=== PATIENT | female | born 1965 | race Caucasian/White ===

== ENCOUNTER 2021-08-07 11:03 | Outpatient (CLI) | payer BC, SELFPAY ==
--- NOTE | ~2021-08-07 | XR_ITS ---
EXAMINATION: XR chest 2V EXAM DATE: 08/07/2021 11:19 INDICATION: R06.02 - Shortness of breath . TECHNIQUE: Frontal and lateral projections of the chest obtained and reviewed. There is no prior anu dy for comparison. FINDINGS: The lungs are clear. There are no pleural effusions. The cardiomediastinal silhouette is within normal limits. There is no pneumothorax suspected. Mild thoracic scoliosis. IMPRESSION: No acute cardiopulmonary findings. Reviewed, dictated and finalized at location A.
== END 2021-08-07 11:04 | disposition home or self-care (01) ==
PROVIDERS: PCP Family Medicine; Visit Provider Nurse Practitioner Family
DX: R06.02 Shortness of breath (principal)
CPT/HCPCS: 71046

== ENCOUNTER 2022-07-26 08:12 | Outpatient (CLI) | payer BC, SELFPAY ==
--- NOTE | ~2022-07-26 | US_ITS ---
US abdomen limited INDICATION: Elevated liver enzymes. PROCEDURE: Realtime right upper abdominal ultrasound. COMPARISON: No prior studies for comparison. FINDINGS: The pancreas is normal without focal mass or pancreatic ductal dilation. Increased liver e chotexture, consistent with fatty infiltration. There is focal hypoechoic areas near the gallbladder fossa, likely focal fatty sparing. There is normal directional flow in the portal vein. The gallbladder is normal without stones, gallbladder wall thickening or pericholecystic fluid. Comm on bile duct measures 5 mm. No sonographic Qureshi's sign. IMPRESSION: 1: Hepatic steatosis. Reviewed, dictated and finalized at location B. IMPRESSION: 1: Hepatic steatosis.
== END 2022-07-26 08:13 | disposition home or self-care (01) ==
PROVIDERS: PCP Family Medicine; Visit Provider Nurse Practitioner Family
DX: R74.8 Abnormal levels of other serum enzymes (principal); K76.0 Fatty (change of) liver, not elsewhere classified
CPT/HCPCS: 76705

== ENCOUNTER → 2023-06-27 13:54 | Outpatient (CLI) | payer BC, SELFPAY ==
--- NOTE | ~2023-06-27 | MM_ITS ---
EXAMINATION: MM screening ney BI w meghann HISTORY: Screening mammogram TECHNIQUE: Craniocaudal and mediolateral oblique 3-D tomosynthesis images were obtained and synthetic 2-D images were generated. CAD analysis was submitted and interpreted. COMPARISON: No prior mammogram is available for comparison at this institution. BREAST PARENCHYMAL COMPOSITION: The breasts are almost entirely fatty. FINDINGS: There is no evidence of suspicious mass, calcification, or architectural distortion to sugg est malignancy in either breast. There has been no suspicious interval change. IMPRESSION: 1. No mammographic evidence of malignancy. 2. Recommend routine screening mammography in one year. BI-RADS Category 1: Negative Reviewed, dictated and finalized at location A.
== END ==
PROVIDERS: PCP Registered Nurse; Visit Provider Registered Nurse
DX: Z12.31 Encounter for screening mammogram for malignant neoplasm of breast (principal)
CPT/HCPCS: 77063; 77067

== ENCOUNTER 2023-09-29 00:34 | Day surgery (SDC) | payer BC, SELFPAY ==
[2023-09-19 14:04] VITALS: BMI 31.2
--- NOTE | 2023-09-27 11:56 | SUR.PREOP ---
Patient called regarding upcoming procedure. Reviewed preop instructions, appointment times, and procedure prep.
--- NOTE | 2023-09-28 18:04 | PM.HPGS ---
History of Present Illness History of Present Illness Consent: Risks, benefits, and alternatives have been discussed and questions answered. Patient agrees to proceed with procedure. Chief complaint: dysphagia Narrative: Landy Aquino is a 58 year old female who has been choking on mucus for the last couple of months. She woke up several weeks ago gasping for air. She felt as though she had aspirin she sometimes feels that food does not go down but not to the point that she needs to stop eating. More often she feels that saliva is accumulating in her throat. One recent occasion at night she vomited up large amounts of saliva. Review of Systems Review of Systems: All systems reviewed & are unremarkable except as noted in HPI and below PMFSH Past Medical History Medical History Chronic insomnia GERD (gastroesophageal reflux disease) History of multiple miscarriages History of vaginal delivery HLD (hyperlipidemia) HTN (hypertension) Surgical History Surgical History History of ankle surgery bilateral History of colonoscopy History of dilation and curettage History of tubal ligation [place] teeth removed Family History Family History Father Hypertension Mother Heart disease Sibling Multiple myeloma Social History Social History Smoking status: Never smoker Second hand tobacco smoke exposure: No Alcohol intake: current Drinks per week: 1 Substance use: never Substance use type: does not use Lack of Transportation: No Lack of Food: Never True Current Housing: I Have Housing Concerned About Future Housing: No Difficulty Paying Gas/Electric Bills: No Difficulty Paying for Meds: No Currently Unemployed: No Education: High School Diploma/GED Difficulty w/ Childcare or Family Care: No Living arrangements: with family Occupation/Education: occupation Gender identity (if verbalized by the patient): Female Sexual Orientation (if Verbalized by the Patient): Straight or Heterosexual Spiritual care concerns: No Meds Home Medications and Allergies Home Medications Medication Instructions Recorded Confirmed Type cetirizine 10 mg tablet (Zyrtec) 10 mg PO DAILY PRN Allergy Symptoms 01/12/21 09/29/23 History omeprazole 40 mg capsule,delayed 40 mg PO DAILY #90 caps 01/12/21 09/29/23 Rx release vitamin B complex (Super B-50 1 cap PO DAILY 01/12/21 09/29/23 History Complex capsule) biotin 1 mg capsule 1 mg PO DAILY 02/07/23 09/29/23 History cholecalciferol (vitamin D3) 25 25 mcg PO DAILY 02/07/23 09/29/23 History mcg (1,000 unit) capsule duloxetine 30 mg capsule,delayed 30 mg PO DAILY #90 caps 05/30/23 09/29/23 Rx release propranolol 20 mg tablet 20 mg PO Q12H #180 tabs 07/22/23 09/29/23 Rx trazodone 100 mg tablet 100 mg PO QHS PRN sleep #90 tabs 07/22/23 09/29/23 Rx triamcinolone acetonide 0.5 % 1 applic topical DAILY PRN rash 08/08/23 09/29/23 Rx topical cream #15 grams simvastatin 5 mg tablet 5 mg PO DAILY #90 tabs 08/23/23 09/29/23 Rx albuterol sulfate 90 mcg/actuation 1 - 2 puff inhalation Q4H PRN 09/13/23 09/29/23 Rx aerosol inhaler (ProAir HFA) shortness of breath or wheezing #8.5 grams Allergies Allergy/AdvReac Type Severity Reaction Status Date / Time amoxicillin Allergy Mild Rash Verified 09/29/23 06:49 ciprofloxacin Allergy Mild Rash Verified 09/29/23 06:49 milk Allergy Other Verified 09/29/23 06:49 Exam Const: General: alert Orientation/consciousness: patient oriented x3 Resp: Auscultation: clear to auscultation bilaterally Cardio: Rhythm: regular rhythm GI: GI Palp: Yes Soft to palpation and No Tenderness to palpation present (GI) Neuro: General: patient oriented x3 Assessment and Plan Assessment and p
[2023-09-29 06:50] VITALS: BP 149/71; PULSE 59; RESP 18; TEMP 36.3; O2SAT 99; BMI 30.6
[2023-09-29] MEDS: LACTATED RINGERS 1,000 ML 150 ML IV CONT (07:03)
--- NOTE | 2023-09-29 07:40 | WPDANESEPPF ---
Anes - Initial Pre Proc Eval Procedure: Operation Date: 09/29/23 08:00 Proposed Procedures p Esophagogastroduodenoscopy - Fadi Toribio MD Date/Time: 09/29/23 07:40 Surgeon: Fadi Toribio MD Pre Op Diagnosis: dysphagia Patient Data Age: 58 Gender: F Height: 1.6 m Weight: 78.4 kg Last Vital Signs Temp 97.3 F L 09/29/23 06:50 Pulse 59 L 09/29/23 06:50 Resp 18 09/29/23 06:50 BP 149/71 H 09/29/23 06:50 Pulse Ox 99 09/29/23 06:50 O2 Del Method Room Air 09/29/23 06:50 Allergies Allergy/AdvReac Type Severity Reaction Status Date / Time amoxicillin Allergy Mild Rash Verified 09/29/23 06:49 ciprofloxacin Allergy Mild Rash Verified 09/29/23 06:49 milk Allergy Other Verified 09/29/23 06:49 Home Medications Medication Instructions Recorded Confirmed Type cetirizine 10 mg tablet (Zyrtec) 10 mg PO DAILY PRN Allergy Symptoms 01/12/21 09/29/23 History omeprazole 40 mg capsule,delayed 40 mg PO DAILY #90 caps 01/12/21 09/29/23 Rx release vitamin B complex (Super B-50 1 cap PO DAILY 01/12/21 09/29/23 History Complex capsule) biotin 1 mg capsule 1 mg PO DAILY 02/07/23 09/29/23 History cholecalciferol (vitamin D3) 25 25 mcg PO DAILY 02/07/23 09/29/23 History mcg (1,000 unit) capsule duloxetine 30 mg capsule,delayed 30 mg PO DAILY #90 caps 05/30/23 09/29/23 Rx release propranolol 20 mg tablet 20 mg PO Q12H #180 tabs 07/22/23 09/29/23 Rx trazodone 100 mg tablet 100 mg PO QHS PRN sleep #90 tabs 07/22/23 09/29/23 Rx triamcinolone acetonide 0.5 % 1 applic topical DAILY PRN rash 08/08/23 09/29/23 Rx topical cream #15 grams simvastatin 5 mg tablet 5 mg PO DAILY #90 tabs 08/23/23 09/29/23 Rx albuterol sulfate 90 mcg/actuation 1 - 2 puff inhalation Q4H PRN 09/13/23 09/29/23 Rx aerosol inhaler (ProAir HFA) shortness of breath or wheezing #8.5 grams Patient hx anesthesia problems: none Family hx anesthesia problems: none Results Review: All pre-operative results and documents have been reviewed as part of the pre-operative evaluation. PENDING SALE TO [facility] Past Medical History Medical History Chronic insomnia GERD (gastroesophageal reflux disease) History of multiple miscarriages History of vaginal delivery HLD (hyperlipidemia) HTN (hypertension) Surgical History Surgical History History of ankle surgery bilateral History of colonoscopy History of dilation and curettage History of tubal ligation [place] teeth removed Family History Family History Father Hypertension Mother Heart disease Sibling Multiple myeloma Social History Social History Smoking status: Never smoker Second hand tobacco smoke exposure: No Alcohol intake: current Drinks per week: 1 Substance use: never Substance use type: does not use Lack of Transportation: No Lack of Food: Never True Current Housing: I Have Housing Concerned About Future Housing: No Difficulty Paying Gas/Electric Bills: No Difficulty Paying for Meds: No Currently Unemployed: No Education: High School Diploma/GED Difficulty w/ Childcare or Family Care: No Living arrangements: with family Occupation/Education: occupation Gender identity (if verbalized by the patient): Female Sexual Orientation (if Verbalized by the Patient): Straight or Heterosexual Spiritual care concerns: No Anes - Eval Final PreProcedure Day of Procedure 09/29/23 07:40 Patient weight: normal Heart: regular rate and rhythm Lungs: clear to auscultation Airway: Mallampati scale class II Neurological: alert and oriented Last oral intake: >/= 8 hours ASA classification: III Emergent: no Anesthetic plan: proceed Anesthesia type and monitoring: general GIVS and standard monitoring Results Review: All pre-o
[2023-09-29 08:12] VITALS: BP 111/64; PULSE 56; RESP 22; O2SAT 96
[2023-09-29 08:22] VITALS: BP 122/69; PULSE 62; RESP 20; O2SAT 95
[2023-09-29 08:32] VITALS: BP 134/77; PULSE 58; RESP 16; O2SAT 96
== END 2023-09-29 08:36 | disposition home or self-care (01) ==
PROVIDERS: PCP Family Medicine; Visit Provider Internal Medicine Gastroenterology
PROC: 0DJ08ZZ Inspection of Upper Intestinal Tract, Via Natural or Artificial Opening Endoscopic (ICD-10-PCS; CPT 43235; principal; 2023-09-29 08:00)
DX: K21.00 Gastro-esophageal reflux disease with esophagitis, without bleeding (principal); K31.7 Polyp of stomach and duodenum; I10 Essential (primary) hypertension; E78.5 Hyperlipidemia, unspecified; K21.9 Gastro-esophageal reflux disease without esophagitis; F51.04 Psychophysiologic insomnia; Z79.51 Long term (current) use of inhaled steroids; Z82.49 Family history of ischemic heart disease and other diseases of the circulatory system
CPT/HCPCS: 43251; 43239; 88305; J2704; J7120

== ENCOUNTER 2023-10-26 13:10 | Outpatient (CLI) | payer BC, SELFPAY | END 2023-10-26 13:11 | disposition home or self-care (01) | LOC: ANHBWCAUD 13:11 | PROVIDERS: PCP Family Medicine; Visit Provider Otolaryngology | DX: H65.499 Other chronic nonsuppurative otitis media, unspecified ear (principal); H69.90 Unspecified Eustachian tube disorder, unspecified ear; H67.2 Otitis media in diseases classified elsewhere, left ear; H72.92 Unspecified perforation of tympanic membrane, left ear; H90.12 Conductive hearing loss, unilateral, left ear, with unrestricted hearing on the contralateral side; H90.71 Mixed conductive and sensorineural hearing loss, unilateral, right ear, with unrestricted hearing on the contralateral side | CPT/HCPCS: 92557; 92567 ==

== ENCOUNTER 2023-11-18 09:13 | Outpatient (CLI) | payer BC, SELFPAY ==
--- NOTE | ~2023-11-18 | US_ITS ---
Limited Abdominal Sonogram: Real-time sonographic imaging of the right upper quadrant was performed. Clinical History: Right upper quadrant pain Findings: The liver appears echogenic, with no evidence of mass lesion or bile duct dilatation. Main portal vein demonstrates normal direction of flow. The gallbladder is well distended, and appears no rmal with no evidence of gallstone or wall thickening. The common bile duct measures 1-2 mm. The vis ualized pancreas, aorta, and IVC are unremarkable. Impression: Diffuse fatty infiltration of liver. Reviewed, dictated and finalized at location M. [facility] Impression: Diffuse fatty infiltration of liver.
== END 2023-11-18 09:14 | disposition home or self-care (01) ==
PROVIDERS: PCP Family Medicine; Visit Provider Physician Assistant
DX: R10.11 Right upper quadrant pain (principal); K76.0 Fatty (change of) liver, not elsewhere classified
CPT/HCPCS: 76705

== ENCOUNTER 2023-12-06 09:28 | Outpatient (CLI) | payer BC, SELFPAY ==
--- NOTE | ~2023-12-06 | NM_ITS ---
EXAMINATION: NM hepatobiliary wo pharm DATE: 12/06/2023 12:05 INDICATION: Right upper quadrant abdominal pain. COMPARISON: Ultrasound 11/18/2023 TECHNIQUE: 5.01 mCi Tc-99m mebrofenin (Choletec) was administered intravenously. Scintigraphic image s of the abdomen were obtained for one hour. Then, the patient drank 8 oz Ensure, and imaging was con tinued for 60 minutes. FINDINGS: There is normal clearance of radiotracer from the blood pool. There is homogeneous tracer u ptake by the liver. Activity progresses to the bowel and gallbladder. Gallbladder ejection fraction (GBEF) was 21%. Note that with this technique, normal GBEF >= 33%. IMPRESSION: 1. Low gallbladder ejection fraction, consistent with gallbladder dysfunction and/or chronic cholecy stitis. Reviewed, dictated and finalized at location E. HAMMER STRIPPER IMPRESSION: 1. Low gallbladder ejection fraction, consistent with gallbladder dysfunction and/or chronic cholecystitis.
== END 2023-12-06 09:29 | disposition home or self-care (01) ==
LOC: ANHIMG 09:31
PROVIDERS: PCP Family Medicine; Visit Provider Physician Assistant
DX: R10.11 Right upper quadrant pain (principal)
CPT/HCPCS: 78226; A9537

== ENCOUNTER 2023-12-21 11:17 | Outpatient (CLI) | payer BC, SELFPAY ==
--- NOTE | ~2023-12-21 | XR_ITS ---
Clinical Indication: Cough PA and lateral views of the chest: Comparison: 08/07/2021 Findings: The lungs are clear, without evidence of focal consolidation or pleural effusion. Cardiome diastinal silhouette is within normal limits. Bones and soft tissues are unremarkable. Impression: Normal chest. Reviewed, dictated and finalized at location . Impression: Normal chest.
== END 2023-12-21 11:18 | disposition home or self-care (01) ==
LOC: ANHIMG 11:19
PROVIDERS: PCP Family Medicine; Visit Provider Nurse Practitioner Family
DX: R05.9 Cough, unspecified (principal)
CPT/HCPCS: 71046

== ENCOUNTER 2023-12-29 08:31 | Outpatient (CLI) | payer BC, SELFPAY ==
--- NOTE | 2023-12-31 21:38 | P.PCNPFT_ITS ---
PFT Procedure Performed PFT Procedure Performed Spirometry with Pre/Post Bronchodilator Plethysmography (Lung Vol) Diffusing Cap (DLCO) Flow Vol Loop PFT Interpretation DOS: 12/29/2023 REQUESTING: Tarun Maldonado APRN REASON FOR TESTING: Asthma PULMONARY FUNCTION TESTS As of December 30, 2022, the Global Lung Initiative reference equations are used in interpretation of spirometry, lung volumes and diffusing capacity. Race and ethnicity are not included as variables in the interpretation strategy. Repeatability of spirometry FEV1 maneuver pre bronchodilator is Grade B, and post-bronchodilator is Grade A. Spirometry: The pre-bronchodilator FEV1 is 2.32 L, 98%, normal. The pre- bronchodilator FVC is 2.89 L, 97%, normal. The FEV1/FVC ratio is 80%, normal. After bronchodilator, the FEV1 is 2.25 L, 95%, normal, 3% drop. The FVC is 2.80 L, 94%, normal, 3% drop. The FEV1/FVC ratio is 80%, normal. Lung volumes: The total lung capacity is 4.07 L, 86% predicted, normal. The ERV is 0.58 L, 62%, BP low normal. The residual volume is 1.19 L, 65%, low end of normal. The RV/TLC is 29%, normal. Airway resistance is normal. Diffusion: DLCO is 17.3, 82%, normal. The DLCO/VA is 4.83, 106%, normal. Flow volume loop: The flow volume loop is normal. IMPRESSION: This study shows normal spirometry, normal lung volumes and normal diffusion without response to bronchodilator. Lack of response to bronchodilator should not preclude use if clinically indicated. Lili Molina MD
== END 2023-12-29 08:32 | disposition home or self-care (01) ==
LOC: ANHPFT 08:32
PROVIDERS: PCP Family Medicine; Visit Provider Nurse Practitioner Family
DX: J45.909 Unspecified asthma, uncomplicated (principal)
CPT/HCPCS: 94060; 94726; 94729

== ENCOUNTER 2024-01-18 09:22 | Outpatient (CLI) | payer BC, SELFPAY ==
--- NOTE | 2024-01-18 09:34 | ECG_ITS ---
SEE SCANNED COPY FOR CONFIRMED REPORT MTDD
[2024-01-18 10:11] LABS: Alanine Aminotransferase 49 U/L (6-35); Albumin Level 4.7 g/dL (3.5-5.1); Alkaline Phosphatase 102 U/L (38-126); Amylase 97 U/L (30-110); Aspartate Amino Transferase 37 U/L (14-36); Bilirubin,Total 0.5 mg/dL (0.2-1.3); Lipase 96 U/L (23-300)
== END 2024-01-18 09:23 | disposition home or self-care (01) ==
LOC: ANHSURGERY 09:25
PROVIDERS: PCP Family Medicine; Visit Provider Surgery
DX: K81.1 Chronic cholecystitis (principal); I10 Essential (primary) hypertension; Z01.818 Encounter for other preprocedural examination
CPT/HCPCS: 36415; 80076; 82150; 83690; 93005

== ENCOUNTER 2024-01-26 00:58 | Day surgery (SDC) | payer BC, SELFPAY ==
[2024-01-17 15:29] VITALS: BMI 31.5
--- NOTE | 2024-01-17 15:35 | PC.NURSE ---
Report to the Outpatient Waiting Room, entrance under the green pavilion located off [facility], at time 1:00 on date 01/26/24. Planned Procedure Time: 3:00. Time changes happen often and if your time is changed the preop area will call you the afternoon before. - You and your visitor will be asked to self-screen and do not enter if you have any COVID symptoms. - A mask is optional within the hospital at this time. Patients may have clear liquids (water, carbonated beverages, clear teas, apple juice) until 3 hours prior to surgery (12:00) with a maximum of 20 ounces. - No food from midnight until time of surgery Take the following medications with a SIP of water the morning of surgery: INHALER, DULOXETINE, PROPRANOLOL DO NOT STOP ANY OF YOUR OTHER PRESCRIPTION MEDICATIONS PRIOR TO SURGERY ?EXCEPT THE FOLLOWING Medications to discontinue per physician: VITAMINS/SUPPLEMENTS Date to take last dose: 01/22/24 Please no make-up, nail uruguayan, hairspray, perfume, deodorant, or body powder the day of surgery. No jewelry (including any body piercings) or valuables the day of surgery, leave them at home. Please take a shower or bath the night before, or the morning of, surgery with an antibacterial soap. Wear comfortable, loose fitting clothing. - Jewelry must be removed prior to entering the operating room. Rings and piercings that are not removed may be cut off. - The hospital will not accept responsibility for valuables. - Please leave all valuables, including medications, at home the day of surgery. If you are going home after surgery, a licensed ice delivery driver must drive you home. - NO public transportation without another adult if you receive anesthesia. - We recommend that an adult stay with you for 24 hours following discharge. - We also recommend that you do not drive, make important decision, drink alcoholic beverages, or take any drugs that were not prescribed by your health care provider for at least 24 hours after your discharge time. Follow any additional instructions given to you from your surgeon. If you or anyone in your household have experienced Covid symptoms in the past week, please notify your surgeon or the nurse liaison at the phone number below for possible testing. Telephone instructions given to PT - AR and asked if any additional questions and then verbalized understanding. Patient advised to call surgeon office or pre surgery nurse liaison [phone] if any additional questions.
--- NOTE | 2024-01-23 15:01 | PM.SD2 ---
Same Day Admit/Disch: HPI History of Present Illness Chief complaint: Epigastric pain Narrative: Landy Aquino is a 58 year old female who has had epigastric and right upper quadrant postprandial pain for 5-6 years. In the last 12 months, pains have been getting more frequent and more intense. It is not uncommon for this to awaken her at night. Her mother had gallbladder disease and had cholecystectomy. Patient did have an ultrasound which was negative. She had an hepatobiliary scan which showed a low gallbladder ejection fraction of 21%. She is taken to surgery at this time for laparoscopic cholecystectomy for chronic acalculous cholecystitis. It should also be noted that patient has another chronic problem in that she has a chronic cough and excessive mucus production. She has LOIDA but is not able to tolerate a CPAP mask as sometimes her mucous chokes her and gives a feeling of inability to breathe.. Taking the mask off in those instances is very difficult and frightening. She has been seen by Dr. Santiago, ears nose throat, and was told that the mucus is coming from her esophagus not from her sinuses. She carries a diagnosis of laryngopharyngeal reflux which is basically GERD that has more of a respiratory impact. She was having esophageal burning but takes both omeprazole and Pepcid. This burning has stopped but she continues to have significant reflux, awakening her at night and causing her to choke. She had an EGD on 09/29/2023 which showed nonerosive gastroesophageal reflux disease as well as multiple gastric polyps. The polyps were benign and the biopsies of the distal esophagus showed mild chronic esophagitis often seen with reflux. [facility] Past Medical History Medical History Chronic insomnia GERD (gastroesophageal reflux disease) History of multiple miscarriages History of vaginal delivery HLD (hyperlipidemia) HTN (hypertension) Surgical History Surgical History History of ankle surgery bilateral History of colonoscopy History of dilation and curettage History of tubal ligation [place] teeth removed Family History Family History Father Hypertension Mother Heart disease Sibling Multiple myeloma Social History Social History Smoking status: Never smoker Second hand tobacco smoke exposure: No Alcohol intake: current Drinks per week: 1 Alcohol use details: 1/MONTH Substance use: never Substance use type: does not use Lack of Transportation: No Lack of Food: Never True Current Housing: I Have Housing Concerned About Future Housing: No Difficulty Paying Gas/Electric Bills: No Difficulty Paying for Meds: No Currently Unemployed: No Education: High School Diploma/GED Difficulty w/ Childcare or Family Care: No Living arrangements: with family Occupation/Education: occupation Gender identity (if verbalized by the patient): Female Sexual Orientation (if Verbalized by the Patient): Straight or Heterosexual Spiritual care concerns: No Same Day Admit/Disch: Med Pre-admit Medications Home Medications Medication Instructions Recorded Confirmed Type vitamin B complex (Super B-50 1 cap PO DAILY 01/12/21 01/17/24 History Complex capsule) biotin 1 mg capsule 1 mg PO DAILY 02/07/23 01/17/24 History cholecalciferol (vitamin D3) 25 25 mcg PO DAILY 02/07/23 01/17/24 History mcg (1,000 unit) capsule duloxetine 30 mg capsule,delayed 30 mg PO DAILY #90 caps 05/30/23 01/17/24 Rx release propranolol 20 mg tablet 20 mg PO Q12H #180 tabs 07/22/23 01/17/24 Rx trazodone 100 mg tablet 100 mg PO QHS PRN sleep #90 tabs 07/22/23 01/17/24 Rx triamcinolone acetonide 0.5 % 1 applic topical DAILY PRN rash 08/08/23 01/17/24 Rx topical cream #15 grams simvastatin 5 mg table
[2024-01-26] VITALS (16 sets, daily range): BP systolic 113–163; BP diastolic 64–88; PULSE 55–80; RESP 11–21; TEMP 36.3–37.1; O2SAT 92–99
--- NOTE | 2024-01-26 12:29 | WPDANESEPPF ---
Anes - Initial Pre Proc Eval Procedure: Operation Date: 01/26/24 13:00 Proposed Procedures p Laparoscopic Cholecystectomy - Jan Ward MD Date/Time: 01/26/24 12:29 Surgeon: Jan Ward MD Pre Op Diagnosis: Epigastric pain Patient Data Age: 58 Gender: F Height: 1.59 m Weight: 80.5 kg Last Vital Signs Temp 98.7 F 01/26/24 11:23 Pulse 62 01/26/24 11:23 Resp 16 01/26/24 11:23 BP 139/64 01/26/24 11:23 Pulse Ox 97 01/26/24 11:23 O2 Del Method Room Air 01/26/24 11:23 Allergies Allergy/AdvReac Type Severity Reaction Status Date / Time amoxicillin Allergy Mild Rash Verified 01/17/24 15:27 ciprofloxacin Allergy Mild Rash Verified 01/17/24 15:27 milk Allergy Other Verified 01/17/24 15:27 Home Medications Medication Instructions Recorded Confirmed Type vitamin B complex (Super B-50 1 cap PO DAILY 01/12/21 01/17/24 History Complex capsule) biotin 1 mg capsule 1 mg PO DAILY 02/07/23 01/17/24 History cholecalciferol (vitamin D3) 25 25 mcg PO DAILY 02/07/23 01/17/24 History mcg (1,000 unit) capsule duloxetine 30 mg capsule,delayed 30 mg PO DAILY #90 caps 05/30/23 01/17/24 Rx release propranolol 20 mg tablet 20 mg PO Q12H #180 tabs 07/22/23 01/17/24 Rx trazodone 100 mg tablet 100 mg PO QHS PRN sleep #90 tabs 07/22/23 01/17/24 Rx triamcinolone acetonide 0.5 % 1 applic topical DAILY PRN rash 08/08/23 01/17/24 Rx topical cream #15 grams simvastatin 5 mg tablet 5 mg PO DAILY #90 tabs 08/23/23 01/17/24 Rx albuterol sulfate 90 mcg/actuation 1 - 2 puff inhalation Q4H PRN 11/17/23 01/17/24 Rx aerosol inhaler (ProAir HFA) shortness of breath or wheezing #8.5 grams Qvar RediHaler 40 mcg/actuation 1 inh inhalation Q12H #10.6 grams 12/21/23 01/17/24 Rx HFA breath activated aerosol (beclomethasone dipropionate) loratadine 10 mg tablet (Claritin) 10 mg PO DAILY 12/21/23 01/17/24 History azelastine 137 mcg (0.1 %) nasal 1 spray intranasal Q12H #90 mL 01/13/24 01/17/24 Rx spray aerosol famotidine 20 mg tablet 20 mg PO QHS #90 tabs 01/20/24 Rx omeprazole 40 mg capsule,delayed 40 mg PO DAILY #90 caps 01/20/24 Rx release Patient hx anesthesia problems: post op nausea/vomiting Family hx anesthesia problems: none Results Review: All pre-operative results and documents have been reviewed as part of the pre-operative evaluation. [facility] Past Medical History Medical History Chronic insomnia GERD (gastroesophageal reflux disease) History of multiple miscarriages History of vaginal delivery HLD (hyperlipidemia) HTN (hypertension) Surgical History Surgical History History of ankle surgery bilateral History of colonoscopy History of dilation and curettage History of tubal ligation [place] teeth removed Family History Family History Father Hypertension Mother Heart disease Sibling Multiple myeloma Social History Social History Smoking status: Never smoker Second hand tobacco smoke exposure: No Alcohol intake: current Drinks per week: 1 Alcohol use details: 1/MONTH Substance use: never Substance use type: does not use Lack of Transportation: No Lack of Food: Never True Current Housing: I Have Housing Concerned About Future Housing: No Difficulty Paying Gas/Electric Bills: No Difficulty Paying for Meds: No Currently Unemployed: No Education: High School Diploma/GED Difficulty w/ Childcare or Family Care: No Living arrangements: with family Occupation/Education: occupation Gender identity (if verbalized by the patient): Female Sexual Orientation (if Verbalized by the Patient): Straight or Heterosexual Spiritual care concerns: No Anes - Eval Final PreProcedure Day of Procedure 01/26/24 12:29
[2024-01-26] MEDS: ACETAMINOPHEN 500 MG TABLET 1000 MG PO (12:50)
[2024-01-26] MEDS: LACTATED RINGERS 1,000 ML 30 ML IV CONT ×2 (12:50→15:00)
[2024-01-26] MEDS: KETOROLAC 15 MG/ML VIAL (*BKC) IV PUSH (12:50)
[2024-01-26] MEDS: SCOPOLAMINE 1 MG PATCH 1 PATCH TRANSDERM (13:03)
--- NOTE | 2024-01-26 13:08 | WPDHPUPDATE1 ---
History and Physical Update Update Date/Time: 01/26/24 13:08 History and Physical has been reviewed, including an updated exam of the patient. There are NO changes in the patient's condition. Risks, benefits, and alternatives have been discussed and questions answered. Patient agrees to proceed with procedure.
[2024-01-26] MEDS: CLINDAMYCIN 900 MG/D5W 50 ML 900 MG/50 ML PIGGYBACK 50 MG IVPB (13:52)
[2024-01-26] MEDS: BUPIVACAINE/EPINEPHRINE 0.5% 50 ML VIAL 20 ML INFILTRATE (14:10)
--- NOTE | 2024-01-26 14:33 | W.PM.PROC2 ---
Procedure Note - Detailed Date of Procedure 01/26/24 Pre-op Diagnosis Acalculous chronic cholecystitis Post-op Diagnosis Same Procedure Performed Laparoscopic cholecystectomy Surgeon Jan Ward MD Research Assistant Professor Emily Sandoval [facility] Anesthesia General and Local Indications Patient is a 58-year-old woman who has for several months had epigastric pain and right upper quadrant pain associated with a lot of bloating. This particularly occurs after large meals and fatty meals. She had a gallbladder ultrasound which was negative. Her hepatobiliary scan showed a low gallbladder ejection fraction of only 20%. She has a family history of gallbladder disease in that her mother had cholecystectomy. She is taken to surgery now for laparoscopic cholecystectomy. Findings Moderate chronic inflammation, no biliary ductal dilatation. Fatty liver was noted. No stones were noted. Description of Procedure Patient was taken to surgery and induced into general anesthesia. The abdomen is prepped and draped. Trocars were placed in the usual fashion using applied [employer] optical trocar and a 5 mm camera. Patient was placed in reverse Trendelenburg. A laparoscopic aspirator was used to decompress the gallbladder. The cholecystotomy was closed with a Vicryl endoloop. We retracted the gallbladder anterosuperiorly. Traction was placed on the infundibulum. The cystic duct and cystic artery were dissected out clearly. We dissected the gallbladder off the liver at its lower 3rd. Critical view was achieved. I then securely clipped and divided the cystic duct and cystic artery. The gallbladder was again retracted and the remaining attachments of the gallbladder to the liver were carefully divided. No significant bleeding occurred. Cautery was used for hemostasis. Once the gallbladder was freed from the liver, it was placed in an Endo-Catch bag and retrieved through the 10 11 epigastric trocar site. We replaced the epigastric trocar and inspected the gallbladder fossa and right upper quadrant. It was irrigated and suctioned several times. There was no evidence of bleeding or bile leakage. I then removed the 10 11 epigastric trocar. A Fam cone and Fam-Rafael suture pass device was then used to close the fascia with an 0 Vicryl suture. We evacuated CO2 and removed the trocar sleeves. Skin wounds were closed with subcuticular 4-0 Monocryl skin suture. The wounds were dressed with Exofin surgical adhesive. The patient was awakened and taken to recovery in good condition. Sponge needle counts were correct x2. Estimated Blood Loss -5 Drains No Packing No Pathology Yes (Gallbladder) Complications No immediate complications Condition Stable Disposition PACU [facility] Billing Surgery - Charge Forward: Surgery Billing (Laparoscopic cholecystectomy)
[2024-01-26] MEDS: oxyCODONE HCL (*CRX) 5 MG TAB IR PO (17:18)
== END 2024-01-26 18:04 | disposition home or self-care (01) ==
PROVIDERS: PCP Family Medicine; Visit Provider Surgery
PROC: 0FT44ZZ Resection of Gallbladder, Percutaneous Endoscopic Approach (ICD-10-PCS; CPT 47562; principal; 2024-01-26 13:00)
DX: K82.4 Cholesterolosis of gallbladder (principal); I10 Essential (primary) hypertension; E78.5 Hyperlipidemia, unspecified; K21.9 Gastro-esophageal reflux disease without esophagitis; R05.3 Chronic cough; G47.33 Obstructive sleep apnea (adult) (pediatric); F51.04 Psychophysiologic insomnia; E66.9 Obesity, unspecified; Z68.31 Body mass index [BMI] 31.0-31.9, adult; Z79.51 Long term (current) use of inhaled steroids; Z98.890 Other specified postprocedural states; Z80.7 Family history of other malignant neoplasms of lymphoid, hematopoietic and related tissues
CPT/HCPCS: 47562; 88304; A9270; J1100; J1170; J1200; J1885; J2250; J2405; J2704; J3010; J7120

== ENCOUNTER 2024-04-24 13:29 | Outpatient (CLI) | payer BC, SELFPAY ==
--- NOTE | ~2024-04-24 | DEXA_ITS ---
Bone Density Report Name: AR ESCOBAR Age: 59 Sex: Female Ethnicity: White Date of : 1965 Indication: postmenopausal; screening for osteoporosis; asthma or emphysema; Referring Provider: COLETTE CAUSEY Study: Bone densitometry was performed. Exam Date: April 24, 2024 Accession number: [id number] Bone Density: Region BMD T-score Z-score Classification AP Spine(L1-L4) 0.731 -2.9 -1.5 Osteoporosis Femoral Neck (Left) 0.643 -1.9 -0.6 Osteopenia Total Hip (Left) 0.931 -0.1 0.8 Normal Femoral Neck (Right) 0.630 -2.0 -0.7 Osteopenia Total Hip (Right) 0.876 -0.5 0.3 Normal Total Hip Mean 0.903 -0.3 0.6 Normal World Health Organization criteria for BMD impression classify patients as: Normal (T-score at or above -1.0), Osteopenia (T-score between -1.0 and -2.5), or Osteoporosis (T-score at or below -2.5). 10-year Fracture Risk: FRAX not reported because: Some T-score for Spine Total or Hip Total or Femoral Neck at or below -2.5 Clinical Information Provided by Patient: Has used the following medications: Vitamin D, Calcium Has the following medical conditions: Asthma or Emphysema Patient maximum height was 63 No regular weight bearing exercise Drinks caffeinated beverages Onset of menses at age 14 Number of children 3 Impression: The patient has osteoporosis, based on the Total Spine T-score. Discussion: INCREASED RISK OF FRACTURE. BONE DENSITY IS UNDESIRABLY LOW AT ONE OR MORE SKELETAL SITES, CONSISTENT WITH POSTMENOPAUSAL OSTEOPOROSIS. This patient's lowest T-score meets the World Health Organization's (WHO) criteria for osteoporosis at one or more sites (T-score -2.5 or below). In untreated patients, the risk of osteoporotic fracture increases approximately two-fold for each 1.0 SD decrease in T-score. Low bone density is not the only risk factor for fracture; also consider factors such as patient's age, frailty or poor health, risk of falling, risk of injury, previous osteoporotic fracture, family history of osteoporosis, cigarette smoking, low body weight, etc. Not everyone with low bone mineral density has osteoporosis; osteomalacia and other metabolic bone disorders should also be considered. Patients who have osteoporosis should be evaluated for specific diseases and conditions (secondary causes) that may cause or contribute to bone loss. The [place] Association of Clinical Endocrinologists (AACE) and National Osteoporosis Foundation (NOF) recommend pharmacologic intervention for all postmenopausal women whose T-score is in this range. The patient should follow a healthful lifestyle (good nutrition with adequate calcium and vitamin D, and appropriate weight-bearing exercise). Follow-Up: Consider a repeat BMD and Vertebral Fracture Assessment (VFA) exam in 2 years or sooner if me
== END 2024-04-24 13:30 | disposition home or self-care (01) ==
LOC: ANHIMG 13:30
PROVIDERS: PCP Family Medicine; Visit Provider Physician Assistant
DX: Z78.0 Asymptomatic menopausal state (principal); M81.0 Age-related osteoporosis without current pathological fracture; M85.852 Other specified disorders of bone density and structure, left thigh; M85.851 Other specified disorders of bone density and structure, right thigh
CPT/HCPCS: 77080

== ENCOUNTER 2024-06-22 08:07 | Outpatient (CLI) | payer BC, SELFPAY ==
--- NOTE | ~2024-06-22 | XR_ITS ---
EXAMINATION: XR UGIAC w barium swallow DATE: 06/22/2024 08:49 INDICATION: Dysphagia. Cough. TECHNIQUE: The patient drank thick barium, gas-producing crystals, and thin barium. Fluoroscopy of th e esophagus, stomach, and proximal small bowel was performed. Fluoroscopy exposure time was 0.6 minut es. The total number of images was 254. Total dose-area product was 1.889 Gy-cm^2. COMPARISON: None. FINDINGS: There is no mass or stricture of the esophagus. Esophageal motility is normal. There is no hiatal hernia. There was no gastroesophageal reflux with provocative maneuvers. The stomach and proxi mal small bowel show normal folding patterns. IMPRESSION: 1. Normal upper gastrointestinal series and esophagram. Reviewed, dictated and finalized at location A.
== END 2024-06-22 08:08 | disposition home or self-care (01) ==
LOC: ANHIMG 08:11
PROVIDERS: PCP Family Medicine; Visit Provider Nurse Practitioner
DX: R05.3 Chronic cough (principal); R13.10 Dysphagia, unspecified
CPT/HCPCS: 74246

== ENCOUNTER 2024-06-28 12:18 | Outpatient (CLI) | payer BC, SELFPAY ==
--- NOTE | ~2024-06-28 | MM_ITS ---
EXAMINATION: MM screening ney BI w meghann HISTORY: Screening TECHNIQUE: Craniocaudal and mediolateral oblique 3-D tomosynthesis images were obtained and synthetic 2-D images were generated. CAD analysis was submitted and interpreted. COMPARISON: 06/27/2023 BREAST PARENCHYMAL COMPOSITION: Not dense: There are scattered areas of fibroglandular density. FINDINGS: There is no evidence of suspicious mass, calcification, or architectural distortion to sugg est malignancy in either breast. There has been no suspicious interval change. IMPRESSION: 1. No mammographic evidence of malignancy. 2. Recommend routine screening mammography in one year. BI-RADS Category 1: Negative Reviewed, dictated and finalized at location B.
== END 2024-06-28 12:19 | disposition home or self-care (01) ==
LOC: MICIMG 12:19
PROVIDERS: PCP Family Medicine; Visit Provider Nurse Practitioner Family
DX: Z12.31 Encounter for screening mammogram for malignant neoplasm of breast (principal)
CPT/HCPCS: 77063; 77067

== ENCOUNTER 2024-11-09 09:37 | Outpatient (CLI) | payer BC, SELFPAY ==
--- NOTE | ~2024-11-09 | XR_ITS ---
CHEST RADIOGRAPH, PA AND LATERAL CLINICAL HISTORY: R05.9 - Cough, unspecified X 1 WK, HX ASTHMA . COMPARISON: 12/21/2023 TECHNIQUE: PA and lateral views of the chest. FINDINGS The cardiomediastinal silhouette is unremarkable. The lungs are clear. Visualized osseous structures and soft tissues are unremarkable. IMPRESSION: No focal infiltrate or effusion. Reviewed, dictated and finalized at location A. EAR OPERATOR
--- OUTSIDE RECORDS SUMMARY | 2024-11-09 10:22 | XMS_ITS | Encounter Summary ---
Author Organization [facility] Address [address] [place] [address] Phone Care Team Providers Care Training Program Developer Name Role Phone Linnette Gaines MD Primary Care Provider Reason for Visit * Reason Comments Medication Refill Encounter Details Date Type Department Care Team (Late st Contact Info) Description 09/17/2020 Refill [facility] - Primary Care - Jamila [address] [place] [phone] Linnette Gaines MD [address] [place] [address] Medication Refill Social History Tobacco Use Types Packs/Day Years Used Date Smoking Tobacco: Never Smokeless Tobacco: Never Alcohol Use Standard Drinks/Week Comments Yes 0 (1 standard drink = 0.6 oz pur e alcohol) PHQ-2 Answer Date Recorded Total Score - Questions 1-9 0 08/03 Comments No Sex and Gender Information Value Date Recorded Sex Assigned at Not on file Legal Sex 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 No / Unsure 08/18/2020 12:55 PM SALES EXECUTIVE INSURANCE documented as of this encounter Miscellaneous Notes * Telephone Encounter - Genevieve Arizmendi, CLAIR - 09/17/2020 11:37 AM SALES EXECUTIVE INSURANCE Medication failed the protocol, provider to review and approve the medication order if appropriate. Requested Prescriptions Pending Prescriptions Disp Refills albuterol 108 (90 Base) MCG/ACT Aerosol Solution [Pharmacy Med Name: ALBUTEROL HFA (PROAIR) INHALER] 8.5 Inhaler 1 Sig: INHALE 2 PUFFS BY MOUTH EVERY 4 HOURS NEEDED FOR WHEEZE Pulmonology: Beta Agonists - Albuterol & Levalbuterol Failed - 09/17/2020 12:00 AM Failed - May refill 2 inhalers, 0 refills one time since last office visit. May refill #50 nebulizer vials, 0 refills for albuterol or #48 vials, 0 refills for Xopenex one time since last office visit. Passed - Valid encounter within last 6 months Past Office Visits Recent Outpatient Visits 1 month ago Physical exam, annual (Adult) [facility] Linnette Gaines MD 2 months ago Gastroesophageal reflux disease [facility] Linnette Gaines MD 1 year ago Physical exam, annual (Adult) [facility] Linnette Gaines MD 1 year ago Insomnia, unspecified type [facility] Linnette Gaines MD 1 year ago Hypertension, unspecified type [facility] Linnette Gaines MD Upcoming Appointments Future Appointments In 11 months [facility] In 11 months Linnette Gaines MD [facility] TRAILER MECHANIC - Recent and Past Visits Recent Visits Date Type Provider Dept 08/18/20 Office Visit Linnette Gaines MD [facility] 07/17/20 Telemedicine Linnette Gaines MD [facility] 07/31/19 Office Visit Linnette Gaines MD [facility] Showing recent visits within past 460 days with a meds authorizing provider and meeting all other requirements Future Appointments No visits were found meeting these conditions. Showing future appointments within next 90 days with a meds authorizing provider and meeting all other requirements Passed - Last BP in normal range BP Readings from Last 1 Encounters: 08/18/20 132/78 S EXECUTIVE INSURANCE documented in this encounter Plan of Treatment Not on file documented as of this encounter Visit Diagnoses Diagnosis Mild intermittent asthma without complication Unspecified asthma documented in this encounter Additional Health Concerns Assessment Noted Time PHQ-9 Depression Total Score: 0 08/18/20 20 1:00 PM SALES EXECUTIVE INSURANCE documented as of this encounter Care Teams Training Program Developer Relationship Specialty Start Date End Date Linnette Gaines MD [address] [place] [address] PCP - General Family Medicine 10/24/18 12/20/23 documented as of this encounter
--- OUTSIDE RECORDS SUMMARY | 2024-11-09 10:22 | XMS_ITS | Clinical Summary ---
Author Organization [facility] Address [address] [place] [address] Phone Care Team Providers Care Jump Iron Machine Presser Name Role Phone Unavailable Primary Care Provider Unavailabl e Allergies Active Allergy Reactions Criticality Noted Date Comments Amoxicillin-Pot Clavulanate Hives 10/24/19 19 Ciprofloxacin Rash 10/05/2018 Milk (Cow) Shortness of Breath 12/26/2018 Medications pantoprazole (PROTONIX) 40 MG Tablet Delayed ResponseIndications :Gastroesophageal reflux disease Take 1 Tab by mouth daily. 90 Tab 1 0 Active propranolol (INDERAL) 20 MG TabletIndications:H ypertension, unspecified type Take 1 Tab by mouth 2 times daily. 180 Tab 1 0 Active albuterol 108 (90 Base) MCG/ACT Aerosol SolutionIndications :Mild intermittent asthma without complication INHALE 2 PUFFS BY MOUTH EVERY 4 HOURS NEEDED FOR WHEEZE 8.5 Inhaler 1 0 Active traZODone (DESYREL) 100 MG TabletIndications:I nsomnia, unspecified type TAKE 1 TABLET BY MOUTH EVERY DAY AT NIGHT 90 Tablet 1 1 Active simvastatin (ZOCOR) 5 MG TabletIndications:H yperlipidemia, unspecified hyperlipidemia type TAKE 1 TABLET BY MOUTH EVERY DAY 90 Tablet 1 1 Active Active Problems Problem Noted Date Diagnosed Date Hyperlipidemia 07/31/2019 IFG (impaired fasting glucose) 07/31/2019 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 Vitamin D insufficiency 03/01/2019 Depression 01/29/2019 Mild intermittent asthma without complication Hypertension 12/26/2018 RLS (restless legs syndrome) 12/26/2018 Insomnia 12/26/2018 Gastroesophageal reflux disease 12/26/2018 Seasonal allergic rhinitis 12/26/2018 Resolved Problems Problem Noted Date Diagnosed Date Resolved Date ETD (Eustachian tube dysfunction), bilateral 9 07/31/2019 Tympanosclerosis involving t ympanic membrane only, bilateral 03/01/2019 07/31/2019 Aural polyp, left 03/01/2019 07/31/2019 PNAR (perennial non-allergic rhinitis) 03/01/2019 07/31/2019 Hypertrophy of inferior nasal turbinate 03/01/2019 07/31/2019 Nasal obstruction without choanal atresia 03/01/2019 07/31/2019 Persistent hypersomnia 03/01/201907/31 Snoring 03/01/2019 07/31/2019 Chronic otitis media of left ear 03/01/2019 07/31/2019 PLMD (periodic limb movement disorder) 03/01/2019 07/31/2019 Laryngopharyngeal reflux (LPR) 03/01/2019 07/31/2019 Immunizations Immunization Administration Dates Next Due Covid-19, Mrna, Lnp-s, Pf, 30 Mcg/0.3 Ml Dose (P fizer) 01/20/2021,12/28/2020 Influenza Vaccine greater than 3 yrs 07/18/2020 Influenza Vaccine, Quadrivalent, PF 07/24/2019 Influenza, Recombinant, Quadrivalent,injectable, Pf 07/18/2020 Pneumococcal Vaccine Adult - 23 Valent 0 TDAP Vaccine 07/31/2019 Family History Relation Name Status Comments Father Alive Mother Alive Social History Tobacco Use Types Packs/Day Years Used Date Smoking Tobacco: Never Smokeless Tobacco: Never Alcohol Use Standard Drinks/Week Comments Yes 0 (1 standard drink = 0.6 oz pur e alcohol) PHQ-2 Answer Date Recorded Total Score - Questions 1-9 0 08/03 Comments No Sex and Gender Information Value Date Recorded Sex Assigned at Not on file Legal Sex Female 2:54 PM ATTIC FANS MECHANIC Gender Identity Not on file Sexual Orientation Not on file Last Filed Vital Signs Vital Sign Reading Time Taken Comments Blood Pressure 132/78 08/18/2020 12:57 PM ATTIC FANS MECHANIC Pulse 56 08/18/2020 12:57 PM ATTIC FANS MECHANIC Temperature 36.8 C (98.2 F) 08/18/2020 12:57 PM ATTIC FANS MECHANIC Respiratory Rate 16 08/18/2020 12:57 PM ATTIC FANS MECHANIC Oxygen Saturation 98% 08/18/2020 12:57 PM ATTIC FANS MECHANIC Inhaled Oxygen Concentration - - Weight 80.1 kg (176 lb 9.6 oz) 08/18/2020 12:57 PM ATTIC FANS MECHANIC Height 162.6 cm (5' 4 ) 08/18/2020 12:57 PM ATTIC FANS MECHANIC Body Mass Index 30.31 08/18/2020 12:57 PM ATTIC FANS MECHANIC Plan of Treatment Health Maintenance Due Date Last Done Comments Hepatitis C Virus (HCV) Screening 1965 Hepatitis B Immunization (1 of 3 - 19+ 3-dose series) 1984 HPV/Cotest 1995 Cologuard 2015 Immunochemical Fecal Occult Blood 2015 Zoster Immunization (1 of 2) 2015 Mammogram 01/31/2021 01/31/2019, 10/22/2016 Pneumococcal Immunization (5 0+ years) (2 of 2 - PCV) 08/18/2021 08/18/2020 Cervical Cancer Screening (CCS) 03/08/2022 Pap Smear 03/08/2022 03/08/2019, 01/31/2019 Influenza Immunization (#1) 06/03/202407/03, 07/18/2020, 07/24/2019 SARS-COV-2 Immunization ( season) 2024 01/20/2021, 12/28/2020 Colonoscopy 04/09/2026 04/09/2016 Colorectal Cancer Screening 04/09/2026 Td Immunization Every 10 Yea rs (Adults With 1 Tdap) 07/31/2029 07/31/2019 Respiratory Syncytial Virus (RSV) Immunization (Adult) (1 - 1-dose 75+ series) 2040 04/09/2016 DTaP/Tdap/Td Immunization Discontinued 07/31/2019 Pneumococcal Immunization Combined Discontinued 08/18/2020 Meningococcal Immunization (ACWY) Aged Out No longer eligible based on patient's age to complete this topic Rotavirus Immunization Aged Out No lo nger eligible based on patient's age to complete this topic Procedures Procedure Name Priority Date/Time Associated Diagnosis Comments PATHOLOGY CYTOLOGY ELECTRIC SEALING 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 Routine 03/08/2019 JOVANY SCREENING BILATERAL DIGITAL W CAD W LEXY Routine 01/31/2019 4:13 PM CDT Screening for malignant neoplasm of breast HM COLONOSCOPY Routine 04/09/2016 from Last 3 Months or Most Recently Relevant to Health Maintenance Results * PATHOLOGY CYTOLOGY ELECTRIC SEALING 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 (03/08/2019) Specimen of unknown material (specimen) Renea Perez Alphonso MOBILE PAINT SPECIALIST, MOBILE PAINT SPECIALIST PATHOLOGY/CYTOLOGY ORDER DENNISE Final Result * JOVANY SCREENING BILATERAL DIGITAL W CAD W LEXY (01/31/2019 4:13 PM CDT) Anatomical Region Laterality Modality breast Bilateral Mammography 01/31/2019 5:50 PM CDT Narrative 02/13/2019 8:25 AM CDT - JOVANY SCREENING BILATERAL DIGITAL W CAD W LEXY BILATERAL DIGITAL SCREENING MAMMOGRAM 3D/2D WITH CAD WITH MEDIOLATERAL OBLIQUE CRANIOCAUDAL: 01/31/2019 The study was acquired using digital technology and interpreted from soft copy. Current study was also evaluated with [employer] version 7.2. CLINICAL: Routine screening. Patient has no complaints. No personal history of cancer. No family history of breast cancer. COMPARISONS: Comparison is made to exams dated: 10/22/2016 and 08/16/2014 [facility]. BREAST TISSUE:The tissue of both breasts is predominantly fatty. FINDINGS: No significant masses, calcifications, or other findings are seen in either breast. There has been no significant interval change. IMPRESSION: BI-RAD 1 NEGATIVE There is no mammographic evidence of malignancy. A 1 year screening mammogram is recommended. The patient has been or will be contacted. The patient will be entered into a reminder system with a target due date of 1 year for her next screening exam. Electronically signed by: Chandra presley/latanya:02/12/2019 17:06:41 Wind Up Operator: Regina Brown (R), [facility] letter sent: Normal Exam Reading location: [facility] BI-RADS: 1 Negative Procedure Note Chandra Askew MD - 02/13/2019 - JOVANY SCREENING BILATERAL DIGITAL W CAD W LEXY BILATERAL DIGITAL SCREENING MAMMOGRAM 3D/2D WITH CAD WITH MEDIOLATERAL OBLIQUE CRANIOCAUDAL: 01/31/2019 The study was acquired using digital technology and interpreted from soft copy. Current study was also evaluated with IC[employer] version 7.2. CLINICAL: Routine screening. Patient has no complaints. No personal history of cancer. No family history of breast cancer. COMPARISONS: Comparison is made to exams dated: 10/22/2016 and 08/16/2014 [facility]. BREAST TISSUE:The tissue of both breasts is predominantly fatty. FINDINGS: No significant masses, calcifications, or other findings are seen in either breast. There has been no significant interval change. IMPRESSION: BI-RAD 1 NEGATIVE There is no mammographic evidence of malignancy. A 1 year screening mammogram is recommended. The patient has been or will be contacted. The patient will be entered into a reminder system with a target due date of 1 year for her next screening exam. Electronically signed by: Chandra presley/latanya:02/12/2019 17:06:41 Wind Up Operator: Regina Brown (R), [facility] letter sent: Normal Exam Reading location: [facility] BI-RADS: 1 Negative us Linnette Gaines MD IMG MAMMO ORDERABLES Final R esult * HM COLONOSCOPY (04/09/2016) us Not On File Provider PROCEDURE/MINOR SURGICAL OR DERABLES Final Result from Last 3 Months or Most Recently Relevant to Health Maintenance Insurance [facility]
--- OUTSIDE RECORDS SUMMARY | 2024-11-09 10:22 | XMS_ITS | Encounter Summary ---
Author Organization [facility] Address [address] 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 Requested Prescriptions Pending Prescriptions Disp Refills traZODone (DESYREL) 100 MG Tablet [Pharmacy Med Name: TRAZODONE 100 MG TABLET] 90 Tablet 1 Sig: TAKE 1 TABLET BY MOUTH EVERY DAY AT NIGHT Not Delegated - Psychiatry: Antidepressants - Serotonin Reuptake Inhibitor/Antagonist Failed - 01/12/2021 12:00 AM Failed - This refill cannot be delegated Passed - Valid encounter within last 12 months Past Office Visits Recent Outpatient Visits 4 months ago Physical exam, annual (Adult) [facility] Linnette Gaines MD 5 months ago Gastroesophageal reflux disease [facility] Linnette Gaines MD 1 year ago Physical exam, annual (Adult) [facility] Linnette Gaines MD 1 year ago [facility], unspecified [facility] Hypertension, unspecified type [facility] Linnette Gaines MD Upcoming Appointments Future Appointments In 7 months [facility] In 7 months Linnette Gaines MD [facility] 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 Showing future appointments within next 90 days with a meds authorizing provider and meeting all other requirements documented in this encounter Plan of Treatment Not on file documented as of this encounter Visit Diagnoses Diagnosis Insomnia, unspecified type documented in this encounter Additional Health Concerns Assessment Noted Time PHQ-9 Depression Total Score: 0 08/18/20 20 1:00 PM FIREWOOD CUTTER documented as of this encounter Care Teams Biztalk Developer Relationship Specialty Start Date End Date Linnette Gaines MD [address] [place] [address] PCP - General Family Medicine 10/24/18 12/20/23 documented as of this encounter
== END 2024-11-09 09:38 | disposition home or self-care (01) ==
PROVIDERS: PCP Family Medicine; Visit Provider Physician Assistant Medical
DX: R05.9 Cough, unspecified (principal); R06.02 Shortness of breath
CPT/HCPCS: 71046

== ENCOUNTER 2025-04-10 08:00 | Outpatient (CLI) | payer BC, SELFPAY ==
--- NOTE | ~2025-04-10 | US_ITS ---
Limited Abdominal Sonogram: Real-time sonographic imaging of the right upper quadrant was performed. Clinical History: Fatty liver Findings: The liver appears echogenic, with no evidence of mass lesion or bile duct dilatation. Main portal vein demonstrates normal direction of flow. The gallbladder is absent, compatible prior radha cystectomy. The common bile duct measures 5 mm. The visualized pancreas, aorta, and IVC are unremark able. Impression: Diffuse fatty infiltration of liver. Status post cholecystectomy. Reviewed, dictated and finalized at location . Impression: Diffuse fatty infiltration of liver. Status post cholecystectomy.
--- OUTSIDE RECORDS SUMMARY | 2025-04-10 08:05 | XMS_ITS | Encounter Summary ---
Author Organization [facility] Address [address] [place] [address] Phone Care Team Providers Care Lode Miner Blasting Name Role Phone Linnette Gaines MD Primary Care Provider [phone] Reason for Visit * Reason Comments Medication Refill Encounter Details Date Type Department Care Team (Late st Contact Info) Description 09/17/2020 Refill [facility] - Primary Care - Jamila [address] [place] [phone] Linnette Gaines MD [address] [place] [address] Medication Refill Social History Tobacco Use Types [...] on file Legal Sex Female 2:54 PM BOBBIN TRUCKER Gender Identity Not on file Sexual Orientation Not on file COVID-19 Exposure Response Date Recorded In the last month, have you been in contact with someone who was confirmed or suspected to have Coronavirus / COVID-19? No / Unsure 08/18/2020 12:55 PM BOBBIN TRUCKER documented as of this encounter Miscellaneous Notes * Telephone Encounter - Genevieve Arizmendi, CLAIR - 09/17/2020 11:37 AM BOBBIN TRUCKER Medication failed the protocol, provider to review [...] 1 month ago Physical exam, annual (Adult) [facility] Linnette Gaines MD 2 months ago Gastroesophageal reflux disease [facility] Linnette Gaines MD 1 year ago Physical exam, annual (Adult) [facility] Linnette Gaines MD 1 year ago Insomnia, unspecified type [facility] Linnette Gaines MD 1 year ago Hypertension, unspecified type [facility] Linnette Gaines MD Upcoming Appointments Future Appointments In 11 months [facility] In 11 months Linnette Gaines MD [facility] YACHT RIGGER - Recent and Past Visits Recent Visits Date Type Provider Dept 08/18/20 Office Visit Linnette Gaines MD [facility] 07/17/20 Telemedicine Linnette Gaines MD [facility] 07/31/19 Office Visit Linnette Gaines MD [facility] Showing recent visits within past 460 days with a meds authorizing provider and meeting all other requirements Future Appointments No visits were found meeting these conditions. Showing future appointments within next 90 days with a meds authorizing provider and meeting all other requirements Passed - Last BP in normal range BP Readings from Last 1 Encounters: 08/18/20 132/78 IN TRUCKER documented in this encounter Plan of Treatment Not on file documented as of this encounter Visit Diagnoses Diagnosis Mild intermittent asthma without complication Unspecified asthma documented in this encounter Additional Health Concerns Assessment Noted Time PHQ-9 Depression Total Score: 0 08/18/20 20 1:00 PM BOBBIN TRUCKER documented as of this encounter Care Teams Lode Miner Blasting Relationship Specialty Start Date End Date Linnette Gaines MD [address] [place] [address] PCP - General Family Medicine 10/24/18 12/20/23 documented as of this encounter
--- OUTSIDE RECORDS SUMMARY | 2025-04-10 08:05 | XMS_ITS | Encounter Summary ---
Author Organization [facility] Address [address] [place] [address] Phone Care Team Providers Care Marketing Sales Supervisor Name Role Phone Linnette Gaines MD Primary Care Provider Reason for Visit * Reason Comments Medication Refill Encounter Details Date Type Department Care Team (Late st Contact Info) Description 01/12/2021 Refill [facility] - Primary Care - Jamila [address] [place] [phone] Linnette Gaines MD [address] [place] [address] Medication Refill Social History Tobacco [...] on file Legal Sex Female 2:54 PM NEWS DIRECTOR Gender Identity Not on file Sexual Orientation [...] 4 months ago Physical exam, annual (Adult) [facility] Linnette Gaines MD 5 months ago Gastroesophageal reflux disease [facility] Linnette Gaines MD 1 year ago Physical exam, annual (Adult) [facility] Linnette Gaines MD 1 year ago Insomnia, unspecified type [facility] 2 years ago Hypertension, unspecified type [facility] Linnette Gaines MD Upcoming Appointments Future Appointments In 7 months [facility] In 7 months Linnette Gaines MD [facility] TERRITORY MANAGER GENERAL SALES - Recent and Past Visits Recent Visits Date Type Provider Dept 08/18/20 Office Visit Linnette Gaines MD [facility] 07/17/20 Telemedicine Linnette Gaines MD [facility] Showing recent visits within past 460 [...] Total Score: 0 08/18/20 20 1:00 PM NEWS DIRECTOR documented as of this encounter Care Teams Marketing Sales Supervisor Relationship Specialty Start Date End Date Linnette Gaines MD [address] [place] [address] PCP - General Family Medicine 10/24/18 12/20/23 documented as of this encounter
--- OUTSIDE RECORDS SUMMARY | 2025-04-10 08:05 | XMS_ITS | Clinical Summary ---
Author Organization [facility] Address [address] [place] [address] Phone Care Team Providers Care Bag Machine Tender Name Role Phone Unavailable Primary Care Provider [...] on file Legal Sex Female 2:54 PM HEALTH AND SAFETY MANAGER Gender Identity Not on file Sexual Orientation Not on file Last Filed Vital Signs Vital Sign Reading Time Taken Comments Blood Pressure 132/78 08/18/2020 12:57 PM HEALTH AND SAFETY MANAGER Pulse 56 08/18/2020 12:57 PM HEALTH AND SAFETY MANAGER Temperature 36.8 C (98.2 F) 08/18/2020 12:57 PM HEALTH AND SAFETY MANAGER Respiratory Rate 16 08/18/2020 12:57 PM HEALTH AND SAFETY MANAGER Oxygen Saturation 98% 08/18/2020 12:57 PM HEALTH AND SAFETY MANAGER Inhaled Oxygen Concentration - - Weight 80.1 kg (176 lb 9.6 oz) 08/18/2020 12:57 PM HEALTH AND SAFETY MANAGER Height 162.6 cm (5' 4) 08/18/2020 12:57 PM HEALTH AND SAFETY MANAGER Body Mass Index 30.31 08/18/2020 12:57 PM HEALTH AND SAFETY MANAGER Plan of Treatment Health Maintenance Due Date Last Done Comments Hepatitis C Virus (HCV) Screening 1965 HPV/Cotest 1995 Cologuard 2010 Immunochemical Fecal Occult Blood 2010 Zoster Immunization (1 of 2) 2015 Pneumococcal Immunization (5 0+ years) (2 of 2 - PCV) 08/18/2021 08/18/2020 Cervical Cancer Screening (CCS) 03/08/2022 Pap Smear 03/08/2022 03/08/2019, 01/31/2019 SARS-COV-2 Immunization ( season) 2024 01/20/2021, 12/28/2020 Respiratory Syncytial Virus (RSV) Immunization (Adult) (1 - Risk 60-74 years 1-dose series) 2025 Influenza Immunization (#1) 06/03/202507/03, 07/18/2020, 07/24/2019 Colonoscopy 04/09/2026 04/09/2016 Colorectal Cancer Screening 04/09/2026 Td Immunization Every 10 Yea rs (Adults With 1 Tdap) 07/31/2029 07/31/2019 Mammogram Discontinued 01/31/2019, 10/22/2016 DTaP/Tdap/Td Immunization Discontinued 07/31/2019 Pneumococcal Immunization Combined Discontinued 08/18/2020 Hepatitis B Immunization Aged Out No longer eligible based on patient's age to complete this topic Human Papillomavirus (HPV) Immunization Aged Out No longer eligible based on patient's age to complete this topic Meningococcal Immunization (ACWY) Aged Out No longer eligible based on patient's age to complete this topic Rotavirus Immunization Aged Out No lo nger eligible based on patient's age to complete this topic Procedures Procedure Name Priority Date/Time Associated Diagnosis Comments PATHOLOGY CYTOLOGY SPIN TANK TENDER Routine 03/08/2019 JOVANY SCREENING BILATERAL DIGITAL W CAD W LEXY Routine 01/31/2019 4:13 PM CDT Screening for malignant neoplasm of breast HM COLONOSCOPY Routine 04/09/2016 from Last 3 Months or Most Recently Relevant to Health Maintenance Results * PATHOLOGY CYTOLOGY SPIN TANK TENDER (03/08/2019) Specimen of unknown material (specimen) us Renea Werner INDUSTRIAL FURNACE FABRICATOR, SENIOR COLDFUSION DEVELOPER PATHOLOGY/CYTOLOGY ORDER DENNISE Final Result * JOVANY [...] made to exams dated: 10/22/2016 and 08/16/2014 [facility]. BREAST TISSUE:The tissue of both breasts is [...] exam. Electronically signed by: Chandra presley/latanya:02/12/2019 17:06:41 Tax Record Clerk: Regina Brown (Anayeli), [facility] letter sent: Normal Exam Reading location: [facility] BI-RADS: 1 Negative Procedure Note Chandra [...] made to exams dated: 10/22/2016 and 08/16/2014 [facility]. BREAST TISSUE:The tissue of both breasts is [...] exam. Electronically signed by: Chandra presley/latanya:02/12/2019 17:06:41 Tax Record Clerk: Regina Brown (R), [facility] letter sent: Normal Exam Reading location: [facility] BI-RADS: 1 Negative us Linnette Gaines MD IMG MAMMO ORDERABLES Final R esult * HM COLONOSCOPY (04/09/2016) us Not On File Provider PROCEDURE/MINOR SURGICAL OR DERABLES Final Result from Last 3 Months or Most Recently Relevant to Health Maintenance Insurance [facility] Member Subscriber Plan / Payer (Ef fective 2018-Present) Name:Landy Escobar Relation to Subscriber:Spouse Name:JAMESON ESCOBAR Date of :1963 (Home) Address: [address] [place] [address] Payer ID:[id number] Group ID:[id number] Type:PPO Address: [facility] [id number] [place] [address]
--- OUTSIDE RECORDS SUMMARY | 2025-04-10 08:05 | XMS_ITS | Clinical Summary ---
Author Organization [address] Address [address] [place] [address] Care Team Providers Care Fiction Writer Name Role Phone Ariel Rosales MD Primary Care Provider Allergies Active Allergy Reactions Criticality Noted Date Comments Amoxicillin-Pot Clavulanate Hives Medium 10/24/19 19 Ciprofloxacin Rash Medium 10/05/2018 Milk Shortness of breath High 12/26/2018 Medications albuterol HFA (PROVENTIL HFA,VENTOLIN HFA,PROAIR HFA) 90 mcg/actuation inhaler Inhale 2 puffs every 4 (four) hours as needed for shortness of breath or wheezing Active albuterol 2.5 mg /3 mL (0.083 %) nebulizer solution 3 mL (2.5 mg total) every 4 (four) hours as needed for shortness of breath or wheezing 5 Active alendronate (FOSAMAX) 70 mg tablet Take 1 tablet (70 mg total) by mouth every 7 [address] (CYMBALTA) 60 mg capsule Take 1 capsule (60 mg total) by mouth daily 5 Active ipratropium-alb uteroL (DUO-NEB) 0.5-2.5 mg/3 mL nebulizer solution Take by nebulization every 6 (six) hours 5 Active montelukast (SINGULAIR) 10 mg tablet Take 1 tablet (10 mg total) by mouth nightly at bedtime 5 Active omeprazole (PriLOSEC) 40 mg capsule Take 1 capsule (40 mg total) by mouth daily 5 Active propranoloL (INDERAL) 20 mg tablet Take 1 tablet (20 mg total) by mouth every 12 (twelve) hours Active simvastatin (ZOCOR) 5 mg tablet Take 1 tablet (5 mg total) by mouth daily Active traZODone (DESYREL) 100 mg tablet Take 1 tablet (100 mg total) by mouth daily as needed Active triamcinolone (KENALOG) 0.5 % cream Apply topically 2 (two) times a day As needed 5 Active Active Problems Problem Noted Date Diagnosed Date Hyperlipidemia 07/31/2019 IFG (impaired fasting glucose) 07/31/2019 Vitamin D insufficiency 03/01/2019 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 Depression 01/29/2019 Gastroesophageal reflux disease 12/26/2018 Hypertension 12/26/2018 Seasonal allergic rhinitis 12/26/2018 RLS (restless legs syndrome) 12/26/2018 Mild intermittent asthma without complication Insomnia 12/26/2018 Encounters Date Type Department Care Team Description 02/14/2025 4:00 PM CDT Office Visit [facility] at [address] [phone] Hermelinda Armendariz NP Other infective acute otitis externa of right ear (Primary Dx) from Last 3 Months Social History Tobacco Use Types Packs/Day Years Used Date Smoking Tobacco: Never Smokeless Tobacco: Never Tobacco Cessation:Counseling Given: Yes Comments No Sex and Gender Information Value Date Recorded Sex Assigned at Not on file Legal Sex Female 3:39 PM CDT Gender Identity Not on file Sexual Orientation Not on file Obstetrics History Last Filed Vital Signs Vital Sign Reading Time Taken Comments Blood Pressure 152/60 02/14/2025 3:54 PM CDT Pulse 80 02/14/2025 3:54 PM CDT Temperature 36.8 C (98.2 F) 02/14/2025 3:54 PM CDT Respiratory Rate 17 02/14/2025 3:54 PM CDT Oxygen Saturation 98% 02/14/2025 3:54 PM CDT Inhaled Oxygen Concentration - - Weight 83 kg (183 lb) 02/14/2025 3:54 PM CDT Height 160 cm (5' 3) 02/14/2025 3:54 PM CDT Body Mass Index 32.42 02/14/2025 3:54 PM CDT Plan of Treatment Health Maintenance Due Date Last Done Comments Cervical Cancer Screening 1965 Colon Cancer Screening-Colonoscopy 1965 Depression Screening 1965 Hepatitis C Screening 1965 Hepatitis B Screening 1983 Regular Well Visit/Exam 18-64 1983 Zoster Vaccine (1 of 2) 2015 Breast Cancer Screening-Mammogram 02/01/2020 019, 01/31/2019 Pneumococcal vaccine <65 (2 of 2 - PCV) 08/18/2021 1 10/18/2019 Covid-19 Vaccine (3 - season) 2024, 12/28/2020 Influenza Vaccine (#1) 2025 07/18/2020, 2018 DTaP/Tdap/Td Vaccine (2 - Td or Tdap) 07/31/2029 Insurance [employer] [facility] Care Teams Fiction Writer Relationship Specialty Start Date End Date Ariel Rosales MD [address] [place] [address] PCP - General Family Medicine 02/14/25
--- OUTSIDE RECORDS SUMMARY | 2025-04-10 08:05 | XMS_ITS | Referral Summary ---
Author Organization [address] Address [address] [place] [phone] Care Team Providers Care Recreation Facilities Supervisor Name Role Phone Ariel Rosales MD Primary Care Provider Encounters Date Type Department Care Team Description 02/14/2025 4:00 PM CDT Office Visit [facility] at [address] [place] [address] Hermelinda Armendariz NP Other infective acute otitis externa of right ear (Primary Dx) from Last 3 Months Allergies Active Allergy Reactions Criticality Noted Date [...] Mild intermittent asthma without complication Insomnia 12/26/2018 Social History Tobacco Use Types Packs/Day Years [...] 02/14/2025 3:54 PM CDT Plan of Treatment Not on file Insurance [employer] [facility] Care Teams Recreation Facilities Supervisor Relationship Specialty Start Date End Date Ariel Rosales MD [address] [facility] [address] [place] [address] PCP - General Family Medicine 02/14/25
== END 2025-04-10 08:01 | disposition home or self-care (01) ==
PROVIDERS: PCP Family Medicine; Visit Provider Student in an Organized Health Care Education/Training Program
DX: K76.0 Fatty (change of) liver, not elsewhere classified (principal); Z90.49 Acquired absence of other specified parts of digestive tract
CPT/HCPCS: 76705

== ENCOUNTER 2025-07-01 12:44 | Outpatient (CLI) | payer BC, SELFPAY ==
--- NOTE | ~2025-07-01 | MM_ITS ---
EXAMINATION: MM screening ney BI w meghann HISTORY: Screening TECHNIQUE: Craniocaudal and mediolateral oblique 3-D tomosynthesis images were obtained and synthetic 2-D images were generated. CAD analysis was submitted and interpreted. COMPARISON: Comparison to multiple prior studies sequentially, with oldest reviewed study dated 06/27/2023. BREAST PARENCHYMAL COMPOSITION: Not dense: There are scattered areas of fibroglandular density. FINDINGS: There is a new asymmetry laterally in the left breast on CC view, middle third. The right breast is stable without evidence for malignancy. IMPRESSION: 1. New focal left breast asymmetry laterally on CC view, middle third. 2. Additional mammographic views and possible breast ultrasound are recommended. BI-RADS Category 0: Incomplete: Needs additional imaging evaluation. Reviewed, dictated and finalized at location B. IMPRESSION: 1. New focal left breast asymmetry laterally on CC view, middle third. 2. Additional mammographic views and possible breast ultrasound are recommended . BI-RADS Category 0: Incomplete: Needs additional imaging evaluation.
== END 2025-07-01 12:45 | disposition home or self-care (01) ==
LOC: MICIMG 12:45
PROVIDERS: PCP Family Medicine; Visit Provider Nurse Practitioner Family
DX: Z12.31 Encounter for screening mammogram for malignant neoplasm of breast (principal); R92.8 Other abnormal and inconclusive findings on diagnostic imaging of breast
CPT/HCPCS: 77063; 77067

== ENCOUNTER 2025-08-06 12:44 | Outpatient (CLI) | payer BC, SELFPAY ==
--- NOTE | ~2025-08-06 | MMUS_ITS ---
EXAMINATION: MM diagnostic ney LT w meghann, US breast LT limited INDICATION: 60-year old female; BI-RADS 0, callback to evaluate Left breast asymmetry. COMPARISON: 07/01/2025. TECHNIQUE: Digital breast tomosynthesis True lateral and spot compression CC and MLO views of the LEFT breast were obtained with computer-aided detection to assist in interpretation of the study. FINDINGS: There are scattered areas of fibroglandular density. The asymmetry of concern in the Lateral left breast persists as a circumscribed mass. Ultrasound was performed for further evaluation. LEFT BREAST ULTRASOUND FINDINGS: Targeted evaluation of the area of concern was completed. There is a 0.3 x 0.2 x 0.2 cm circumscribed hypoechoic mass at 2:00 location 8 cm from the nipple that correlate to the area of Mammographic finding. IMPRESSION: Probable Benign LEFT breast mass. Short-term follow-up recommended. RECOMMENDATION: 6 month follow-up diagnostic LEFT mammogram and LEFT breast ultrasound. BI-RADS 3, PROBABLY BENIGN Reviewed, dictated and finalized at location B. IMPRESSION: Probable Benign LEFT breast mass. Short-term follow-up recommended. RECOMMENDATION: 6 month follow-up diagnostic LEFT mammogram and LEFT breast ultrasound. BI-RADS 3, PROBABLY BENIGN
--- OUTSIDE RECORDS SUMMARY | 2025-08-06 14:27 | XMS_ITS | Encounter Summary ---
Author Organization [facility] Address [address] [place] [phone] Phone Care Team Providers Care Network Support Name Role Phone Linnette Gaines MD Primary Care Provider Reason for Visit * Reason Comments Medication Refill Encounter Details Date Type Department Care Team (Late st Contact Info) Description [facility] Jamila [address] [place] [phone] Linnette Gaines MD [address] [place], [place] [phone] Medication Refill Social History Tobacco Use Types [...] on file Legal Sex Female 2:54 PM GIS PROFESSOR Gender Identity Not on file Sexual Orientation [...] 4 months ago Physical exam, annual (Adult) [facility] Linnette Gaines MD 5 months ago Gastroesophageal reflux disease [facility] Linnette Gaines MD 1 year ago Physical exam, annual (Adult) [facility] Linnette Gaines MD 1 year ago Insomnia, unspecified type [facility] Linnette Gaines MD 2 years ago Hypertension, unspecified type [facility] Linnette Gaines MD Upcoming Appointments Future Appointments In 7 months [facility] In 7 months Linnette Gaines MD [facility] CORNER BLOCK CUTTER - Recent and Past Visits Recent Visits Date Type Provider Dept 08/18/20 Office Visit Linnette Gaines MD [facility] 07/17/20 Telemedicine Linnette Gaines MD [facility] Showing recent visits within past 460 [...] Total Score: 0 08/18/20 20 1:00 PM GIS PROFESSOR documented as of this encounter Care Teams Network Support Relationship Specialty Start Date End Date Linnette Gaines MD [address] [place] [address] PCP - General Family Medicine 10/24/18 12/20/23 documented as of this encounter
--- OUTSIDE RECORDS SUMMARY | 2025-08-06 14:27 | XMS_ITS | Clinical Summary ---
Author Organization [facility] Address [address] [place] [address] Phone Care Team Providers Care Burlap Bag Sewer Name Role Phone Unavailable Primary Care Provider [...] on file Legal Sex Female 2:54 PM HALFWAY HOUSE COUNSELOR Gender Identity Not on file Sexual Orientation Not on file Last Filed Vital Signs Vital Sign Reading Time Taken Comments Blood Pressure 132/78 08/18/2020 12:57 PM HALFWAY HOUSE COUNSELOR Pulse 56 08/18/2020 12:57 PM HALFWAY HOUSE COUNSELOR Temperature 36.8 C (98.2 F) 08/18/2020 12:57 PM HALFWAY HOUSE COUNSELOR Respiratory Rate 16 08/18/2020 12:57 PM HALFWAY HOUSE COUNSELOR Oxygen Saturation 98% 08/18/2020 12:57 PM HALFWAY HOUSE COUNSELOR Inhaled Oxygen Concentration - - Weight 80.1 kg (176 lb 9.6 oz) 08/18/2020 12:57 PM HALFWAY HOUSE COUNSELOR Height 162.6 cm (5' 4) 08/18/2020 12:57 PM HALFWAY HOUSE COUNSELOR Body Mass Index 30.31 08/18/2020 12:57 PM HALFWAY HOUSE COUNSELOR Plan of Treatment Health Maintenance Due Date Last Done Comments Hepatitis C Virus (HCV) Screening 1965 HPV/Cotest 1995 Cologuard 2010 Immunochemical Fecal Occult Blood 2010 Zoster Immunization (1 of 2) 2015 Pneumococcal Immunization (5 0+ years) (2 of 2 - PCV) 08/18/2021 08/18/2020 Cervical Cancer Screening (CCS) 03/08/2022 Pap Smear 03/08/2022 03/08/2019, 01/31/2019 Respiratory Syncytial Virus (RSV) Immunization (Adult) (1 - Risk 60-74 years 1-dose series) 2025 Influenza Immunization (#1) 06/03/202507/03, 07/18/2020, 07/24/2019 SARS-COV-2 Immunization (3 - 2024- season) 2025 01/20/2021, 12/28/2020 Colonoscopy 04/09/2026 04/09/2016 Colorectal Cancer [...] Priority Date/Time Associated Diagnosis Comments PATHOLOGY CYTOLOGY DIRECTOR OF CATERING SALES Routine 03/08/2019 JOVANY SCREENING BILATERAL DIGITAL W CAD W LEXY Routine 01/31/2019 4:13 PM CDT Screening for malignant neoplasm of breast HM COLONOSCOPY Routine 04/09/2016 from Last 3 Months or Most Recently Relevant to Health Maintenance Results * PATHOLOGY CYTOLOGY DIRECTOR OF CATERING SALES (03/08/2019) Specimen of unknown material (specimen) us Renea Werner HATCHERY HELPER, HEAD STILL OPERATOR PATHOLOGY/CYTOLOGY ORDER DENNISE Final Result * JOVANY [...] made to exams dated: 10/22/2016 and 08/16/2014 [facility]. BREAST TISSUE:The tissue of both breasts is [...] exam. Electronically signed by: Chandra presley/latanya:02/12/2019 17:06:41 Pharmacovigilance Scientist: Regina Brown (Anayeli), [facility] letter sent: Normal Exam Reading location: [facility] BI-RADS: 1 Negative Procedure Note Chandra Askew [...] made to exams dated: 10/22/2016 and 08/16/2014 [facility]. BREAST TISSUE:The tissue of both breasts is [...] exam. Electronically signed by: Chandra presley/latanya:02/12/2019 17:06:41 Pharmacovigilance Scientist: Regina Brown (R), [facility] letter sent: Normal Exam Reading location: [facility] BI-RADS: 1 Negative us Linnette Gaines MD IMG MAMMO ORDERABLES Final R esult * HM COLONOSCOPY (04/09/2016) us Not On File Provider PROCEDURE/MINOR SURGICAL OR DERABLES Final Result from Last 3 Months or Most Recently Relevant to Health Maintenance Insurance [facility] Member Subscriber Plan / Payer (Ef fective 2018-Present) Name:Landy Escobar Relation to Subscriber:Spouse Name:JAMESON ESCOBAR Date of :1963 (Home) Address: [address] [place] [address] Payer ID:[id number] Group ID:[id number] Type:PPO Address: [facility] [id number] [place] [address]
--- OUTSIDE RECORDS SUMMARY | 2025-08-06 14:27 | XMS_ITS | Clinical Summary ---
Author Organization [address] Address [address] [place] [address] Care Team Providers Care Journeyman Pipe Fitter Name Role Phone Ariel Rosales MD Primary [...] 1 10/18/2019 Covid-19 Vaccine (3 - season) 2025, 12/28/2020 Influenza Vaccine (#1) 2025 07/18/2020, 2018 DTaP/Tdap/Td Vaccine (2 - Td or Tdap) 07/31/2029 Insurance [employer] [facility] Care Teams Journeyman Pipe Fitter Relationship Specialty Start Date End Date Ariel Rosales MD [address] [place] [address] PCP - General Family Medicine 02/14/25
--- OUTSIDE RECORDS SUMMARY | 2025-08-06 14:27 | XMS_ITS | Encounter Summary ---
Author Organization [facility] Address [address] [place] [address] Phone Care Team Providers Care Cement Mason Apprentice Name Role Phone Linnette Gaines MD Primary Care Provider Reason for Visit * Reason Comments Medication Refill Encounter Details Date Type Department Care Team (Late st Contact Info) Description 09/17/2020 Refill [facility] - Primary Care - Jamila [address] [place] [phone] Linnette Gaines MD [address] [place] [address] Medication Refill Social History Tobacco Use Types [...] on file Legal Sex Female 2:54 PM HAND WRAPPER OPERATOR Gender Identity Not on file Sexual Orientation Not on file COVID-19 Exposure Response Date Recorded In the last month, have you been in contact with someone who was confirmed or suspected to have Coronavirus / COVID-19? No / Unsure 08/18/2020 12:55 PM HAND WRAPPER OPERATOR documented as of this encounter Miscellaneous Notes * Telephone Encounter - Genevieve Arizmendi, CLAIR - 09/17/2020 11:37 AM HAND WRAPPER OPERATOR Medication failed the protocol, provider to review [...] 1 month ago Physical exam, annual (Adult) [facility] Linnette Gaines MD 2 months ago Gastroesophageal reflux disease [facility] Linnette Gaines MD 1 year ago Physical exam, annual (Adult) [facility] [place] Linnette Gaines MD 1 year ago Insomnia, unspecified type [facility] Linnette Gaines MD 1 year ago Hypertension, unspecified type [facility] Linnette Gaines MD Upcoming Appointments Future Appointments In 11 months [facility] In 11 months Linnette Gaines MD [facility] CRATE TIER - Recent and Past Visits Recent Visits Date Type Provider Dept 08/18/20 Office Visit Linnette Gaines MD [facility] 07/17/20 Telemedicine Linnette Gaines MD [facility] 07/31/19 Office Visit Linnette Gaines MD [facility] Showing recent visits within past 460 days with a meds authorizing provider and meeting all other requirements Future Appointments No visits were found meeting these conditions. Showing future appointments within next 90 days with a meds authorizing provider and meeting all other requirements Passed - Last BP in normal range BP Readings from Last 1 Encounters: 08/18/20 132/78 WRAPPER OPERATOR documented in this encounter Plan of Treatment Not on file documented as of this encounter Visit Diagnoses Diagnosis Mild intermittent asthma without complication Unspecified asthma documented in this encounter Additional Health Concerns Assessment Noted Time PHQ-9 Depression Total Score: 0 08/18/20 20 1:00 PM HAND WRAPPER OPERATOR documented as of this encounter Care Teams Cement Mason Apprentice Relationship Specialty Start Date End Date Linnette Gaines MD [address] [place] [address] PCP - General Family Medicine 10/24/18 12/20/23 documented as of this encounter
== END 2025-08-06 12:45 | disposition home or self-care (01) ==
LOC: ANHFOHIMG 12:45
PROVIDERS: PCP Family Medicine; Visit Provider Nurse Practitioner Family
DX: R92.8 Other abnormal and inconclusive findings on diagnostic imaging of breast (principal)
CPT/HCPCS: 76642; 77061; 77065; G0279

== ENCOUNTER 2025-08-08 10:02 | Outpatient (CLI) | payer BC, SELFPAY ==
--- OUTSIDE RECORDS SUMMARY | 2025-08-08 18:28 | XMS_ITS | Encounter Summary ---
Author Organization [facility] Address [address] [place] [address] Phone Care Team Providers Care Java Core Developer Name Role Phone Linnette Gaines MD Primary Care Provider Reason for Visit * Reason Comments Medication Refill Encounter Details Date Type Department Care Team (Late st Contact Info) Description 09/17/2020 Refill [facility] - Primary Care - Jamila [address] [place] [phone] Linnette Gaines MD [address] [place], [place] [phone] Medication Refill Social History Tobacco Use Types [...] on file Legal Sex Female 2:54 PM TERRAZZO ROLLER Gender Identity Not on file Sexual Orientation Not on file COVID-19 Exposure Response Date Recorded In the last month, have you been in contact with someone who was confirmed or suspected to have Coronavirus / COVID-19? No / Unsure 08/18/2020 12:55 PM TERRAZZO ROLLER documented as of this encounter Miscellaneous Notes * Telephone Encounter - Genevieve Arizmendi, CLAIR - 09/17/2020 11:37 AM TERRAZZO ROLLER Medication failed the protocol, provider to review [...] 1 month ago Physical exam, annual (Adult) [facility] Linnette Gaines MD 2 months ago Gastroesophageal reflux disease [facility] Linnette Gaines MD 1 year ago Physical exam, annual (Adult) [facility] [place] Linnette Gaines MD 1 year ago Insomnia, unspecified type [facility] Linnette Gaines MD 1 year ago Hypertension, unspecified type [facility] Linnette Gaines MD Upcoming Appointments Future Appointments In 11 months [facility] In 11 months Linnette Gaines MD [facility] 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 Showing future appointments within next 90 days with a meds authorizing provider and meeting all other requirements Passed - Last BP in normal range BP Readings from Last 1 Encounters: 08/18/20 132/78 AZZO ROLLER documented in this encounter Plan of Treatment Not on file documented as of this encounter Visit Diagnoses Diagnosis Mild intermittent asthma without complication Unspecified asthma documented in this encounter Additional Health Concerns Assessment Noted Time PHQ-9 Depression Total Score: 0 08/18/20 20 1:00 PM TERRAZZO ROLLER documented as of this encounter Care Teams Java Core Developer Relationship Specialty Start Date End Date Linnette Gaines MD [address] [place] [address] PCP - General Family Medicine 10/24/18 12/20/23 documented as of this encounter
--- OUTSIDE RECORDS SUMMARY | 2025-08-08 18:28 | XMS_ITS | Encounter Summary ---
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 Gender Identity Not on file Sexual [...] 4 months ago Physical exam, annual (Adult) [facility] Linnette Gaines MD 5 months ago Gastroesophageal reflux disease [facility] Linnette Gaines MD 1 year ago Physical exam, annual (Adult) [facility] Linnette Gaines MD 1 year ago Insomnia, unspecified type [facility] Linnette Gaines MD 2 years ago Hypertension, unspecified type [facility] Linnette Gaines MD Upcoming Appointments Future Appointments In 7 months [facility] In 7 months Linnette Gaines MD [facility] 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
--- OUTSIDE RECORDS SUMMARY | 2025-08-08 18:28 | XMS_ITS | Clinical Summary ---
Author Organization [address] Address [address] [place] [address] Care Team Providers Care Supervisor Assembly Room Name Role Phone Ariel Rosales MD Primary [...] (2 - Td or Tdap) 07/31/2029 Insurance [employer] [facility] Care Teams Supervisor Assembly Room Relationship Specialty Start Date End Date Ariel Rosales MD [address] [place] [address] PCP - General Family Medicine 02/14/25
--- OUTSIDE RECORDS SUMMARY | 2025-08-08 18:28 | XMS_ITS | Clinical Summary ---
Author Organization [facility] Address [address] [place] [address] Phone Care Team Providers Care Relations Manager Name Role Phone Unavailable Primary Care Provider [...] on file Legal Sex Female 2:54 PM WEBBING SUPERVISOR Gender Identity Not on file Sexual Orientation Not on file Last Filed Vital Signs Vital Sign Reading Time Taken Comments Blood Pressure 132/78 08/18/2020 12:57 PM WEBBING SUPERVISOR Pulse 56 08/18/2020 12:57 PM WEBBING SUPERVISOR Temperature 36.8 C (98.2 F) 08/18/2020 12:57 PM WEBBING SUPERVISOR Respiratory Rate 16 08/18/2020 12:57 PM WEBBING SUPERVISOR Oxygen Saturation 98% 08/18/2020 12:57 PM WEBBING SUPERVISOR Inhaled Oxygen Concentration - - Weight 80.1 kg (176 lb 9.6 oz) 08/18/2020 12:57 PM WEBBING SUPERVISOR Height 162.6 cm (5' 4) 08/18/2020 12:57 PM WEBBING SUPERVISOR Body Mass Index 30.31 08/18/2020 12:57 PM WEBBING SUPERVISOR Plan of Treatment Health Maintenance Due Date [...] Priority Date/Time Associated Diagnosis Comments PATHOLOGY CYTOLOGY RISK CONTROL REPRESENTATIVE Routine 03/08/2019 JOVANY SCREENING BILATERAL DIGITAL W CAD W LEXY Routine 01/31/2019 4:13 PM CDT Screening for malignant neoplasm of breast HM COLONOSCOPY Routine 04/09/2016 from Last 3 Months or Most Recently Relevant to Health Maintenance Results * PATHOLOGY CYTOLOGY RISK CONTROL REPRESENTATIVE (03/08/2019) Specimen of unknown material (specimen) us Renea Werner CHIEF COMMUNICATIONS OFFICER, DEPUTY DIRECTOR OF FINANCE PATHOLOGY/CYTOLOGY ORDER DENNISE Final Result * JOVANY [...] made to exams dated: 10/22/2016 and 08/16/2014 [facility]. BREAST TISSUE:The tissue of both breasts is [...] exam. Electronically signed by: Chandra presley/latanya:02/12/2019 17:06:41 Actuarial Director: Regina Brown (Anayeli), [facility] letter sent: Normal Exam Reading location: [facility] BI-RADS: 1 Negative Procedure Note [...] made to exams dated: 10/22/2016 and 08/16/2014 [facility]. BREAST TISSUE:The tissue of both breasts is [...] exam. Electronically signed by: Chandra presley/latanya:02/12/2019 17:06:41 Actuarial Director: Regina Brown (R), [facility] letter sent: Normal Exam Reading location: [facility] BI-RADS: 1 Negative us Linnette Gaines MD IMG MAMMO ORDERABLES Final R esult * HM COLONOSCOPY (04/09/2016) us Not On File Provider PROCEDURE/MINOR SURGICAL OR DERABLES Final Result from Last 3 Months or Most Recently Relevant to Health Maintenance Insurance [facility] Member Subscriber Plan / Payer (Ef fective 2018-Present) Name:Landy Escobar Relation to Subscriber:Spouse Name:JAMESON ESCOBAR Date of :1963 (Home) Address: [address] [place] [address] Payer ID:[id number] Group ID:[id number] Type:PPO Address: [facility] [id number] [place] [address]
--- NOTE | 2025-08-15 11:54 | WPDHOLTEREM ---
Holter/Event Monitor Holter/Event Monitor Date of procedure: 08/08/25 Holter/Event Procedure: 3-7 Day Holter Monitor Indications: Palpitations Conclusion: 1. 3 days holter monitor on 08/08/25. 2. Underlying rhythm is sinus rhythm. HR range 59-110 bpm; average HR 79 bpm. 3. There are rare premature supraventricular complexes and rare supraventricular couplets. No supraventricular tachycardia. 4. There are rare premature ventricular complexes. No ventricular tachycardia. 5. No significant pauses greater than 3 seconds. 6. Patient reports 13 episodes of symptoms of fluttering, irregular beats, lightheadedness, chest pain which demonstrate sinus rhythm, HR range 68-88 bpm with 3 episodes with PAC's and 1 episode with PVC.
== END 2025-08-08 10:03 | disposition home or self-care (01) ==
LOC: ANHCARD 10:09
PROVIDERS: PCP Family Medicine; Visit Provider Student in an Organized Health Care Education/Training Program
DX: I49.1 Atrial premature depolarization (principal); I49.3 Ventricular premature depolarization; R42 Dizziness and giddiness
CPT/HCPCS: 93242

== ENCOUNTER 2025-09-05 08:00 | Outpatient (CLI) | payer BC, SELFPAY ==
--- NOTE | ~2025-09-05 | XR_ITS ---
EXAMINATION: XR foot LT min 3V, 09/05/2025 8:07 INTEGRATED LOGISTICS OPERATIONS MANAGER HISTORY: M79.672 - Pain in left foot COMPARISON: No comparisons available. Findings: No acute fracture or malalignment. No significant degenerative changes. Soft tissues unremarkable. Impression: No acute fracture or malalignment. Reviewed, dictated and finalized at location P. GRATED LOGISTICS OPERATIONS MANAGER Impression: No acute fracture or malalignment.
== END 2025-09-05 08:01 | disposition home or self-care (01) ==
LOC: MICIMG 08:01
PROVIDERS: PCP Family Medicine
DX: M79.672 Pain in left foot (principal)
CPT/HCPCS: 73630